=== PATIENT | female | born 1955 | race Two or more races ===

== ENCOUNTER 2018-09-25 08:43 | Outpatient (CLI) | payer OTHER | END 2018-09-25 09:09 | disposition home or self-care (01) | LOC: LAB 08:43 | DX: I10 Essential (primary) hypertension (principal); E11.9 Type 2 diabetes mellitus without complications; E79.2 Myoadenylate deaminase deficiency; K92.1 Melena; E03.8 Other specified hypothyroidism ==

== ENCOUNTER 2018-09-25 09:52 | Outpatient (CLI) | payer OTHER | END 2018-09-25 10:34 | disposition home or self-care (01) | LOC: NUCLEAR | DX: I10 Essential (primary) hypertension (principal); R07.89 Other chest pain; R00.2 Palpitations ==

== ENCOUNTER → 2018-12-26 10:24 | Outpatient (CLI) | payer OTHER | END | disposition home or self-care (01) | LOC: LAB 10:24 | DX: I10 Essential (primary) hypertension (principal); E11.9 Type 2 diabetes mellitus without complications; E03.8 Other specified hypothyroidism; E78.2 Mixed hyperlipidemia ==

== ENCOUNTER → 2019-01-24 | Outpatient (CLI) | payer OTHER | END | disposition home or self-care (01) | LOC: RAD 09:07 | DX: M25.561 Pain in right knee (principal) ==

== ENCOUNTER 2019-04-05 06:41 | Outpatient (CLI) | payer OTHER | END 2019-04-05 06:47 | disposition home or self-care (01) | LOC: LAB 06:41 | DX: I10 Essential (primary) hypertension (principal); E11.9 Type 2 diabetes mellitus without complications; E03.8 Other specified hypothyroidism; E78.2 Mixed hyperlipidemia; Z12.11 Encounter for screening for malignant neoplasm of colon ==

== ENCOUNTER 2019-07-24 08:28 | Outpatient (CLI) | payer OTHER | END 2019-07-24 08:36 | disposition home or self-care (01) | LOC: LAB 08:28 | DX: I10 Essential (primary) hypertension (principal); E11.9 Type 2 diabetes mellitus without complications; E03.8 Other specified hypothyroidism; E78.2 Mixed hyperlipidemia ==

== ENCOUNTER 2019-08-02 09:56 | Outpatient (CLI) | payer OTHER | END 2019-08-02 10:25 | disposition home or self-care (01) | LOC: SONOGRAMA 09:56 | DX: E03.8 Other specified hypothyroidism (principal); E04.2 Nontoxic multinodular goiter ==

== ENCOUNTER 2019-08-09 07:25 | Outpatient (CLI) | payer OTHER | END 2019-08-09 07:28 | disposition home or self-care (01) | LOC: SONOGRAMA 07:25 | DX: E04.1 Nontoxic single thyroid nodule (principal) ==

== ENCOUNTER 2020-03-04 14:58 | Emergency (ER) | payer OTHER ==
[~2020-03-04] VITALS: Ht 162.6 cm; Wt 72.6 kg
[2020-03-04] MEDS ORDERED: ZESTRIL20 MG (15:24)
[2020-03-04] MEDS ORDERED: ATENOLOL50 MG (15:24)
[2020-03-04] MEDS ORDERED: ZOCOR20 MG (15:25)
== END 2020-03-04 17:37 | disposition home or self-care (01) ==
LOC: ER 14:58
DX: M54.5 Low back pain (principal)

== ENCOUNTER 2020-06-21 09:56 | Outpatient (CLI) | payer OTHER ==
[~2020-06-21 09:56] MED LIST: ATENOLOL50 MG; ZESTRIL20 MG; ZOCOR20 MG
== END 2020-06-21 10:48 | disposition home or self-care (01) ==
LOC: LAB 09:56
PROVIDERS: ATTEND Internal Medicine Cardiovascular Disease
DX: E03.8 Other specified hypothyroidism (principal); I10 Essential (primary) hypertension; E11.9 Type 2 diabetes mellitus without complications; Z12.11 Encounter for screening for malignant neoplasm of colon; E55.9 Vitamin D deficiency, unspecified; E78.2 Mixed hyperlipidemia

== ENCOUNTER 2020-06-23 09:29 | Outpatient (CLI) | payer OTHER | END 2020-06-23 09:33 | disposition home or self-care (01) | LOC: LAB 09:29 | PROVIDERS: ATTEND Internal Medicine Cardiovascular Disease | DX: I10 Essential (primary) hypertension (principal); E11.9 Type 2 diabetes mellitus without complications; E03.8 Other specified hypothyroidism; E78.2 Mixed hyperlipidemia; Z12.11 Encounter for screening for malignant neoplasm of colon; E55.9 Vitamin D deficiency, unspecified ==

== ENCOUNTER 2020-07-02 09:55 | Outpatient (CLI) | payer OTHER | END 2020-07-02 10:05 | disposition home or self-care (01) | LOC: MAMO-SONO 09:55 | PROVIDERS: ATTEND Internal Medicine Cardiovascular Disease | DX: Z12.31 Encounter for screening mammogram for malignant neoplasm of breast (principal); N64.59 Other signs and symptoms in breast ==

== ENCOUNTER 2020-07-31 19:50 | Emergency (ER) | payer OTHER ==
[~2020-07-31] VITALS: Ht 160 cm; Wt 72.6 kg
== END 2020-07-31 22:41 | disposition home or self-care (01) ==
LOC: ER 19:50
DX: M47.892 Other spondylosis, cervical region (principal)

== ENCOUNTER → 2021-03-21 | Outpatient (CLI) | payer OTHER | END | disposition home or self-care (01) | LOC: LAB 09:25 | PROVIDERS: ATTEND Internal Medicine Cardiovascular Disease | DX: I10 Essential (primary) hypertension (principal); E11.9 Type 2 diabetes mellitus without complications; E03.9 Hypothyroidism, unspecified; E78.2 Mixed hyperlipidemia; E55.9 Vitamin D deficiency, unspecified; Z12.11 Encounter for screening for malignant neoplasm of colon ==

== ENCOUNTER 2021-03-23 07:00 | Outpatient (CLI) | payer OTHER | END 2021-03-23 07:02 | disposition home or self-care (01) | LOC: LAB 07:00 | PROVIDERS: ATTEND Internal Medicine Cardiovascular Disease | DX: I10 Essential (primary) hypertension (principal); E11.9 Type 2 diabetes mellitus without complications; E03.9 Hypothyroidism, unspecified; R78.2 Finding of cocaine in blood; E55.9 Vitamin D deficiency, unspecified; Z12.11 Encounter for screening for malignant neoplasm of colon ==

== ENCOUNTER 2021-04-22 13:47 | Outpatient (CLI) | payer OTHER | END 2021-04-22 13:48 | disposition home or self-care (01) | LOC: NUCLEAR 13:47 | PROVIDERS: ATTEND Internal Medicine Cardiovascular Disease | DX: M81.0 Age-related osteoporosis without current pathological fracture (principal); E55.9 Vitamin D deficiency, unspecified ==

== ENCOUNTER 2021-07-22 09:07 | Outpatient (CLI) | payer OTHER | END 2021-07-22 09:15 | disposition home or self-care (01) | LOC: MAMO-SONO 09:07 | PROVIDERS: ATTEND Internal Medicine Cardiovascular Disease | DX: N64.89 Other specified disorders of breast (principal); Z12.31 Encounter for screening mammogram for malignant neoplasm of breast ==

== ENCOUNTER → 2021-09-08 09:48 | Outpatient (CLI) | payer OTHER | END | disposition home or self-care (01) | LOC: LAB 09:48 | PROVIDERS: ATTEND Internal Medicine Cardiovascular Disease | DX: I10 Essential (primary) hypertension (principal); E11.9 Type 2 diabetes mellitus without complications; E03.8 Other specified hypothyroidism; E78.2 Mixed hyperlipidemia ==

== ENCOUNTER 2021-12-13 22:03 | Emergency (ER) | payer OTHER ==
[~2021-12-13] VITALS: Ht 162.6 cm; Wt 71.7 kg
== END 2021-12-13 23:54 | disposition home or self-care (01) ==
LOC: ER 22:03
DX: R10.32 Left lower quadrant pain (principal); M54.9 Dorsalgia, unspecified

== ENCOUNTER 2021-12-16 07:06 | Outpatient (CLI) | payer OTHER | END 2021-12-16 07:07 | disposition home or self-care (01) | LOC: LAB 07:06 | PROVIDERS: ATTEND Internal Medicine Cardiovascular Disease | DX: I10 Essential (primary) hypertension (principal); E11.9 Type 2 diabetes mellitus without complications; Z12.11 Encounter for screening for malignant neoplasm of colon; E55.9 Vitamin D deficiency, unspecified; E03.9 Hypothyroidism, unspecified; E78.2 Mixed hyperlipidemia ==

== ENCOUNTER 2022-01-06 14:21 | Outpatient (CLI) | payer OTHER | END 2022-01-06 14:31 | disposition home or self-care (01) | LOC: RAD 14:21 | PROVIDERS: ATTEND Internal Medicine Cardiovascular Disease | DX: J44.9 Chronic obstructive pulmonary disease, unspecified (principal); M48.4 Fatigue fracture of vertebra ==

== ENCOUNTER → 2022-01-07 07:40 | Outpatient (CLI) | payer OTHER | END | disposition home or self-care (01) | LOC: NUCLEAR 07:40 | PROVIDERS: ATTEND Internal Medicine Cardiovascular Disease | DX: I10 Essential (primary) hypertension (principal) ==

== ENCOUNTER 2022-01-19 07:37 | Outpatient (CLI) | payer OTHER | END 2022-01-19 07:50 | disposition home or self-care (01) | LOC: TOM 07:37 | PROVIDERS: ATTEND Internal Medicine Cardiovascular Disease | DX: R10.9 Unspecified abdominal pain (principal); K57.30 Diverticulosis of large intestine without perforation or abscess without bleeding ==

== ENCOUNTER 2022-01-25 12:55 | Outpatient (CLI) | payer OTHER | END 2022-01-25 15:00 | disposition home or self-care (01) | LOC: LAB 12:55 | PROVIDERS: ATTEND Specialist/Technologist, Other Nephrology | DX: N18.30 Chronic kidney disease, stage 3 unspecified (principal); E11.21 Type 2 diabetes mellitus with diabetic nephropathy; D63.1 Anemia in chronic kidney disease; N30.00 Acute cystitis without hematuria; E78.5 Hyperlipidemia, unspecified; E03.9 Hypothyroidism, unspecified ==

== ENCOUNTER 2022-02-01 11:14 | Outpatient (CLI) | payer OTHER | END 2022-02-01 11:17 | disposition home or self-care (01) | LOC: LAB 11:14 | PROVIDERS: ATTEND Specialist/Technologist, Other Nephrology | DX: E11.21 Type 2 diabetes mellitus with diabetic nephropathy (principal); N18.30 Chronic kidney disease, stage 3 unspecified; D63.1 Anemia in chronic kidney disease; N30.00 Acute cystitis without hematuria; E78.5 Hyperlipidemia, unspecified; E03.9 Hypothyroidism, unspecified ==

== ENCOUNTER → 2022-02-25 12:59 | Outpatient (CLI) | payer OTHER | END | disposition home or self-care (01) | LOC: NUCLEAR 11:30 | PROVIDERS: ATTEND Specialist/Technologist, Other Nephrology | DX: N13.9 Obstructive and reflux uropathy, unspecified (principal) | CPT/HCPCS: 78708; A9539 ==

== ENCOUNTER 2022-03-05 16:39 | Outpatient (CLI) | payer OTHER | END 2022-03-05 16:43 | disposition home or self-care (01) | LOC: LAB 16:39 | PROVIDERS: ATTEND Specialist/Technologist, Other Nephrology | DX: N30.00 Acute cystitis without hematuria (principal) ==

== ENCOUNTER 2022-03-30 13:56 | Outpatient (CLI) | payer OTHER | END 2022-03-30 13:57 | disposition home or self-care (01) | LOC: LAB 13:56 | PROVIDERS: ATTEND Urology | DX: N28.1 Cyst of kidney, acquired (principal) ==

== ENCOUNTER 2022-04-06 07:45 | Outpatient (CLI) | payer OTHER | END 2022-04-06 07:47 | disposition home or self-care (01) | LOC: MAMO-SONO 07:45 | DX: Z12.31 Encounter for screening mammogram for malignant neoplasm of breast (principal); Z78.0 Asymptomatic menopausal state ==

== ENCOUNTER 2022-04-07 09:13 | Outpatient (CLI) | payer OTHER | END 2022-04-07 09:20 | disposition home or self-care (01) | LOC: MRI 09:13 | PROVIDERS: ATTEND Urology | DX: N28.1 Cyst of kidney, acquired (principal) | CPT/HCPCS: 74181 ==